=== PATIENT | male | born 1970 | race Caucasian/White ===

== ENCOUNTER 2022-03-12 11:29 | Emergency (ER) | payer OTHER ==
[~2022-03-12] VITALS: Ht 172.7 cm; Wt 72.6 kg
[2022-03-12 11:44] VITALS: BP_SYST 144
[2022-03-12] MEDS ORDERED: MECLIZINE HCL 25 MG TABLET (ANITVERT) PO ONE (11:45)
[2022-03-12] MEDS ORDERED: METOCLOPRAMIDE HCL 10 MG/2 ML VIAL IVP ONE (11:45)
--- NOTE | 2022-03-12 11:56 | NUR ---
Placed in room 4 . Placed on potline monitor, blood pressure machine and pulse oximeter. To gown for exam. Side rails up. Report given to GUNNER ZABALA
--- NOTE | 2022-03-12 12:00 | NUR ---
RECEIVED PT FROM TRIAGE NURSE, PT COVERED IN DRIED FECES. PT BIBA FOR DIARRHEA, N/V. PT IS AAOX4. RESP E/U. ON R/A. NORMAL S1S2. PT N/V, DIARRHEA. SKIN CDI, WARM, CAP REFILL < 3SECS. NO EDEMA. SIDERAILS UP X2.
--- NOTE | 2022-03-12 12:10 | NUR ---
ER at bedside examining patient.
[2022-03-12] MEDS ORDERED: NACL 0.9% 1,000 ML IV ONE (12:15)
--- NOTE | 2022-03-12 12:30 | NUR ---
REPORTED TO DR. MAJANO THAT PT HAS SWELLING AND EXCORIATION TO BACK OF HEAD. NNOS.
[2022-03-12 12:45] LABS: BASOPHILS % (AUTO) 0.3 % (0.0-2.0); EOSINOPHILS % (AUTO) 0.1 % (0.0-4.0); HEMATOCRIT 42.1 % (36-54); LYMPHOCYTES # (AUTO) 1.2 K/uL (1.0-5.5); MEAN CORPUSCULAR VOLUME 93 fL (79.0-98.0); NEUTROPHILS # (AUTO) 12.4 K/uL (1.8-7.7); NEUTROPHILS % (AUTO) 84.6 % (40.0-70.0); PLATELET COUNT (AUTO) 239 K/uL (130-430); RED BLOOD CELL COUNT(AUTO) 4.51 MIL/uL (4.2-6.2); RED CELL DISTRIBUTION WIDTH 13.2 % (9.0-15.0); WHITE BLOOD COUNT (AUTO) 14.6 K/uL (4.8-10.8)
[2022-03-12 12:46] LABS: ANION GAP 11 (5-15); CALCIUM 9.5 mg/dL (8.4-11.0); CHLORIDE 103 mmol/L (98-107); CREATININE 0.85 mg/dL (0.55-1.30); GLUCOSE 121 mg/dL (70-99); POTASSIUM 3.3 mmol/L (3.5-5.1); UREA NITROGEN, BLOOD 15 mg/dL (8-21)
[2022-03-12 12:59] LABS: ALANINE AMINOTRANSFERASE 15 U/L (12-78); ALBUMIN 3.7 g/dL (3.4-4.8); AMYLASE 47 U/L (0-100); ASPARTATE AMINOTRANSFERASE 23 U/L (10-37); C-REACTIVE PROTEIN QUANT 3.7 mg/dL (0-0.5); LIPASE 30 U/L (73-393); TOTAL BILIRUBIN 1.2 mg/dL (0.0-1.0)
--- NOTE | 2022-03-12 13:00 | NUR ---
EKG OBTAINED AND NOTIFIED TO
[2022-03-12 13:05] LABS: GFR AFRICAN AMERICAN 122 mL/min (>90)
--- NOTE | 2022-03-12 13:07 | NUR ---
COVID test given to lab at 13:00
--- NOTE | 2022-03-12 13:30 | NUR ---
PT RETURNS FROM RADIOLOGY VIA [employer].
--- NOTE | 2022-03-12 13:35 | NUR ---
# 20 gauge angiocath placed to LEFT AC. Use of asceptic technique. Opsite placed over site. Blood return noted. Blood for lab drawn from site. Flushed with 10 cc of normal saline. No evidence of infiltration noted. Patient tolerated well.
[2022-03-12 13:50] VITALS: BP_SYST 147
[2022-03-12] MEDS ORDERED: MORPHINE 2 MG/ML INJ. SYRINGE IVP ONE (14:15)
--- NOTE | 2022-03-12 14:32 | NUR ---
REPORT GIVEN TO [facility] ([phone]), TO VJ BELTRAN. PT TO TRANSFER BY [facility] WITHIN 25MIN, TO ACCEPTED BY DR. HARRIS.
[2022-03-12 14:45] LABS: ACETONE, SERUM NEGATIVE (NEGATIVE)
--- NOTE | 2022-03-12 14:47 | NUR ---
Patient to be transferred to [facility]. Is being transferred due to higher level of care. Receiving facility has accepting physician and available space. ER physician has signed transfer form. Patient or responsible democrat has agreed to transfer and signed form. Patient belongings inventoried and will be sent with patient. Copy of nursing notes, lab reports, EKG, Physicians Orders and X-rays to be sent with patient. Report called to VJ BELTRAN at receiving facility. Receiving physician is DR. HARRIS. . [facility] ambulance service has been called for transfer. ETA is [id number].
== END 2022-03-12 14:47 | disposition short-term general hospital (02) ==
LOC: SED 11:29
DX: I60.9 Nontraumatic subarachnoid hemorrhage, unspecified (principal); I10 Essential (primary) hypertension; R42 Dizziness and giddiness; R11.2 Nausea with vomiting, unspecified; R19.7 Diarrhea, unspecified; Z79.899 Other long term (current) drug therapy
CPT/HCPCS: 99285; 96374; 70450; 71045; 96361; 96375; 87426; 80053; 82009; 82150; 83690; 85025; 86140; 84484; 36415; 93005; 76376; 83605; J8597; J2765; J2270; J7030